=== PATIENT | female | born 1950 | race Caucasian/White ===

== ENCOUNTER 2024-01-10 17:44 | Emergency (ER) | payer MEDICARE, OTHER, SELFPAY ==
[2024-01-10 17:48] VITALS: BP 150/72
--- NOTE | 2024-01-10 18:23 | ED.GENMED ---
History of Present Illness
General
Chief Complaint: Musculo-Skeletal Complaint
Source: patient
Time Seen by Provider: 01/10/24 18:16
Travel History
Have you had any contact with someone who has COVID-19?: No
Do you have any symptoms of coronavirus? Fever > 100 degrees, chills, cough, shortness of breath, sore throat, loss of taste or smell, muscle aches, or headache?: No
History of Present Illness
History of Present Illness:
73-year-old female present emergency department for evaluation after she accidentally slipped and fell in her driveway, landing onto her left elbow with pain and swelling since falling. Patient notes pain increases with range of motion. She took
some Tylenol around 3 PM with minimal relief. Denies any previous history of injury or surgery. No other extremity related injuries. Denies any head injury, loss consciousness, use of anticoagulants or any other concerns.
Past History
Past History
ED Past Medical History: Cancer (Breast cancer)
ED Past Surgical History: Cholecystectomy, Gynecological and Orthopedic
Social History
Tobacco: Non-smoker
Alcohol: None
Drug: None
Personal:
Living: with family
Review of Systems
Review of Systems
All Other Systems: ROS reviewed and negative except as documented in HPI and ROS
Phy Exam
Physical Exam
Physical Exam:
GENERAL: Alert , in no apparent distress
EYE: conjunctiva clear
Head: Normocephalic atraumatic
NECK: Supple,
ENT: mmm.
LUNGS: no acute respiratory distress
NEUROLOGICAL: Alert and oriented
SKIN: Warm and dry, skin intact.
MUSCULOSKELETAL: Left upper extremity: Holding arm against her body with elbow flexed at 90 degrees. Patient is able to pronate and supinate but with some discomfort. She is having difficulty with flexion and extension secondary to pain. No focal
areas of tenderness but patient does note diffuse tenderness with palpation of the medial and lateral epicondyles. Easily palpable radial pulse. Cap refill less than 2 seconds. Sensation grossly intac to light touch. Patient allows for full
range of motion of her wrist, digits and shoulder without any pain.
PSYCH: Normal and appropriate interaction.
Scores
Heart Failure Risk
Heart Failure Risk Score: Not Applicable
Heart Score for Chest Pain Patients
STEMI patient?: Not applicable
Withdrawal Assessment of Alcohol
Withdrawal Assessment Completed?: Not applicable
Course
Orders/Labs/Results
Orders:
Orders
01/10/24 18:23
Ibuprofen [Motrin] 600 mg PO NOW STA
CR Elbow - Left Min 3 Views Urgent
Comment:
Reason For Exam: fall, injury, edema
Vital Signs
Initial and Last Documented VS:
Initial Vital Signs
Temp Pulse Resp BP Pulse Ox
98.5 F 75 18 150/72 100
01/10/24 17:48 01/10/24 17:48 01/10/24 17:48 01/10/24 17:48 01/10/24 17:48
Last Documented Vital Signs
Temp Pulse Resp BP Pulse Ox
98.5 F 75 18 150/72 100
01/10/24 17:48 01/10/24 17:48 01/10/24 17:48 01/10/24 17:48 01/10/24 17:48
Procedures
Splinting/Sling Placement
Left Upper Arm:
Procedure completed by: Philipp
Pre-splint extermity exam: neurovascular intact
Type of splint: posterior long arm
Splint material: other (3in orthoglass)
Splint checked by provider?: Yes
Type of sling: sling fitted
Normal distal neurovascular exam?: Yes
MDM/Problems Addressed
Differential Diagnosis Includes:
Contusion, sprain, fracture
MDM/Problems Addressed:
73-year-old female present emergency department for evaluation of left elbow injury sustained in an accidental fall on her driveway. There is some mild edema on exam. Will order x-ray to evaluate for possible fracture. Patient requesting
something for pain and is agreeable to Motrin. Reassessment by.
*Radiology
Radiology exam reviewed: preliminary read by ED provider (Distal humerus fracture)
*Critical Care Note
Total Time (30-74mins, 75-104mins- exclusive of procedures): Not Applicable
Patient Management
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
Escalation/DeEscalation of care consider admission/obs:
Patient was placed in a splint as above. She has a distal humerus fracture on x-ray. I notified Ortho on-call, Dr. Fontenot, patient can contact office tomorrow for an appointment. Placed in sling for comfort. Otherwise stable for discharge home.
ED Attending Note
-
Portions of this chart may have been created with voice recognition software.� Occasional wrong word or��sound alike� substitutions may have occurred due to the inherent limitations of voice recognition software.
Discharge Plan
Departure
Patient Disposition: Home (Routine Discharge)
Date of Disposition: 01/10/24
Time of Disposition: 19:06
Patient with high blood pressure during this ER visit?: Yes
Discharge Problem:
Fall from slipping on ice, Closed fracture of distal end of left humerus
Instructions: Elbow Fracture (DC)
Prescriptions:
No Action
multivitamin 1 EACH tablet
1 ea PO DAILY
gabapentin 300 MG capsule
300 mg PO BID
polyethylene glycol 3350 [Miralax] 119 GM powder
119 gm PO DIRECTED
Referrals:
Harjit Fontenot MD [Active] - (Ortho - Call for appointment)
Ana Melgoza MD [Family Provider] -
Interventions
Interventions:
*Risk Screen - Suicide Last Done: 01/10/24 18:20
*General Assessment Last Done: 01/10/24 18:30
*Neglect/Abuse Screening Last Done: 01/10/24 18:20
ED- Fall Risk Assessment Last Done: 01/10/24 18:20
*ED COVID-19 Vaccine History Last Done: 01/10/24 18:20
*Nursing Disposition Last Done: 01/10/24 19:54
ED-Musculoskeletal Assessment Last Done: 01/10/24 18:20
Discharge Date and Time
Discharge Date/Time: 01/10/24 19:55
[2024-01-10 18:29] VITALS: BMI 27.7
[2024-01-10] MEDS: MOTRIN 600 MG PO (18:37)
== END 2024-01-10 19:55 | disposition home or self-care (01) ==
LOC: EMR 17:44
PROVIDERS: EMERGENCY PHYSICIAN Student in an Organized Health Care Education/Training Program; FAMILY PHYSICIAN Family Medicine
DX: S42.492A Other displaced fracture of lower end of left humerus, initial encounter for closed fracture (principal); W00.0XXA Fall on same level due to ice and snow, initial encounter; R03.0 Elevated blood-pressure reading, without diagnosis of hypertension
CPT/HCPCS: 99283; 29105; 73080

== ENCOUNTER → 2024-01-13 07:22 | Outpatient (REF) | payer MEDICARE, OTHER, SELFPAY | LOC: RAD 07:22 | PROVIDERS: ATTENDING PHYSICIAN Orthopaedic Surgery Hand Surgery; FAMILY PHYSICIAN Family Medicine | DX: M25.522 Pain in left elbow (principal) | CPT/HCPCS: 73200 ==

== ENCOUNTER → 2024-01-16 06:40 | Outpatient (REF) | payer MEDICARE, OTHER, SELFPAY ==
[2024-01-16 08:59] LABS: Hematocrit 43.1 % (37.0-47.0); Hemoglobin 14.4 g/dL (12.0-16.0); Mean Corp Hgb Conc. 33.4 g/dL (33.0-37.0); Mean Corpuscular Hgb 30.4 pg (27.0-31.0); Mean Corpuscular Volume 91.1 fL (81.0-99.0); Mean Platelet Volume 9.7 fL (7.4-10.4); Platelet Count 248 10^3/uL (130-400); Red Blood Cell Count 4.73 10^6/uL (4.20-5.40); Red Cell Dist. Width 13.9 % (11.5-14.5); White Blood Cell Count 5.1 10^3/uL (4.8-10.8)
[2024-01-16 09:33] LABS: Blood Urea Nitrogen 15 mg/dl (7-17); Calcium 9.4 mg/dl (8.4-10.2); Carbon Dioxide 26 mmol/L (22-30); Chloride 105 mmol/L (98-107); Glucose 91 mg/dl (70-99); Potassium 4.8 mmol/L (3.5-5.1); Sodium 139 mmol/L (135-145); eGFR > 60.00
== END ==
LOC: SDSPAT 06:40
PROVIDERS: ATTENDING PHYSICIAN Orthopaedic Surgery Hand Surgery; FAMILY PHYSICIAN Family Medicine
DX: Z01.818 Encounter for other preprocedural examination (principal)
CPT/HCPCS: 36415; 80048; 85027; 93005

== ENCOUNTER 2024-01-18 06:16 | Day surgery (SDC) | payer MEDICARE, OTHER, SELFPAY ==
[2024-01-16 15:48] VITALS: BMI 29.0
[2024-01-18] VITALS (11 sets, daily range): BP systolic 133–159; BP diastolic 70–104; BMI 29.0
[2024-01-18] MEDS: TYLENOL 1000 MG PO (09:39)
[2024-01-18] MEDS: NORMOSOL-R 1000 IV (09:46)
== END 2024-01-18 16:35 | disposition home or self-care (01) ==
LOC: SDS 06:16
PROVIDERS: ATTENDING PHYSICIAN Orthopaedic Surgery Hand Surgery
DX: S42.402A Unspecified fracture of lower end of left humerus, initial encounter for closed fracture (principal); X58.XXXA Exposure to other specified factors, initial encounter
CPT/HCPCS: 24586; C1713; 73080; 76000

== ENCOUNTER 2024-02-16 09:15 | Outpatient (RCR) | payer MEDICARE, OTHER, SELFPAY | END 2024-02-16 23:59 | disposition home or self-care (01) | LOC: ROT 09:15 | PROVIDERS: ATTENDING PHYSICIAN Orthopaedic Surgery Hand Surgery; FAMILY PHYSICIAN Family Medicine | DX: S42.412D Displaced simple supracondylar fracture without intercondylar fracture of left humerus, subsequent encounter for fracture with routine healing (principal); Z73.6 Limitation of activities due to disability | CPT/HCPCS: 97010; 97166; 97535 ==

== ENCOUNTER 2024-03-27 14:59 | Outpatient (RCR) | payer MEDICARE, OTHER, SELFPAY | END 2024-03-27 23:59 | disposition home or self-care (01) | LOC: ROT 14:59 | PROVIDERS: ATTENDING PHYSICIAN Orthopaedic Surgery Hand Surgery; FAMILY PHYSICIAN Family Medicine | DX: Z47.89 Encounter for other orthopedic aftercare (principal); Z73.6 Limitation of activities due to disability; S42.412D Displaced simple supracondylar fracture without intercondylar fracture of left humerus, subsequent encounter for fracture with routine healing | CPT/HCPCS: 97010; 97110; 97140 ==

== ENCOUNTER 2024-04-18 09:55 | Outpatient (RCR) | payer MEDICARE, OTHER, SELFPAY | END 2024-04-18 23:59 | disposition home or self-care (01) | LOC: ROT 09:55 | PROVIDERS: ATTENDING PHYSICIAN Orthopaedic Surgery Hand Surgery; FAMILY PHYSICIAN Family Medicine | DX: Z47.89 Encounter for other orthopedic aftercare (principal); S42.412D Displaced simple supracondylar fracture without intercondylar fracture of left humerus, subsequent encounter for fracture with routine healing; Z73.6 Limitation of activities due to disability | CPT/HCPCS: 97010; 97110; 97140 ==

== ENCOUNTER → 2024-05-23 09:47 | Outpatient (REF) | payer MEDICARE, OTHER, SELFPAY | LOC: RAD 09:47 | PROVIDERS: ATTENDING PHYSICIAN Family Medicine | DX: S52.502S Unspecified fracture of the lower end of left radius, sequela (principal); Z78.0 Asymptomatic menopausal state | CPT/HCPCS: 77080 ==

== ENCOUNTER → 2024-09-19 09:52 | Outpatient (REF) | payer MEDICARE, OTHER, SELFPAY ==
[2024-09-19 10:57] LABS: % Basophils 0.9 % (0-2); % Eosinophils 0.9 % (0-6); % Immature Granulocytes 0.4 % (0-0.5); % Lymphocytes 19.1 % (20.5-51.1); % Monocytes 5.3 % (1.7-9.3); % Neutrophils 73.4 % (42.2-75.2); Absolute Basophils 0.1 10^3/uL (0-0.2); Absolute Eosinophils 0.1 10^3/uL (0-0.7); Absolute Lymphocytes 1.5 10^3/uL (1.2-3.4); Absolute Monocytes 0.4 10^3/uL (0.1-0.6); Absolute Neutrophils 5.8 10^3/uL (1.4-6.5); Hematocrit 42.1 % (37.0-47.0); Hemoglobin 14.4 g/dL (12.0-16.0); Mean Corp Hgb Conc. 34.2 g/dL (33.0-37.0); Mean Corpuscular Hgb 29.3 pg (27.0-31.0); Mean Corpuscular Volume 85.6 fL (81.0-99.0); Mean Platelet Volume 9.9 fL (7.4-10.4); Nucleated Red Blood Cells % 0 %; Platelet Count 214 10^3/uL (130-400); Red Blood Cell Count 4.92 10^6/uL (4.20-5.40); Red Cell Dist. Width 13.5 % (11.5-14.5); Urine Albumin Negative (Neg - Trace); Urine Bilirubin Negative (Negative); Urine Character Clear (Clear); Urine Color Yellow; Urine Glucose Negative (Negative); Urine Ketone Negative (Negative); Urine Leukocyte 2+ (Negative); Urine Nitrite Negative (Negative); Urine Occult Blood Negative (Negative); Urine Specific Gravity 1.005 (<1.030); Urine Urobilinogen Negative (Neg - 1+); White Blood Cell Count 7.9 10^3/uL (4.8-10.8)
[2024-09-19 11:21] LABS: Urine Amorphous Seen
[2024-09-19 11:22] LABS: Urine Bacteria Many (Negative); Urine Red Blood Cell 0-2 /HPF (0-2)
[2024-09-19 11:32] LABS: Erythrocyte Sed Rate 18 mm/hour (0-20)
[2024-09-19 11:36] LABS: Rheumatoid Agglutinin Less Than 10 IU (<10 IU)
[2024-09-19 11:38] LABS: ALT (SGPT) 31 U/L (0-35); AST (SGOT) 32 U/L (14-36); Alkaline Phosphatase 76 U/L (38-126); Blood Urea Nitrogen 16 mg/dl (7-17); Calcium 9.9 mg/dl (8.4-10.2); Carbon Dioxide 27 mmol/L (22-30); Chloride 101 mmol/L (98-107); Glucose 88 mg/dl (70-99); Potassium 4.8 mmol/L (3.5-5.1); Sodium 144 mmol/L (135-145); Total Bilirubin 0.4 mg/dl (0.2-1.3); Total Protein 7.9 g/dl (6.3-8.2); eGFR > 60.00
[2024-09-19 12:09] LABS: TSH Reflex To Free T4 1.95 uIU/ml (0.47-4.68)
[2024-09-20 14:57] LABS: Lyme Antibody Screen, EIA Negative (Negative)
[2024-09-21 02:19] LABS: ANA, IgG Reflex to HEp-2 None Detected (None Detected)
[2024-09-21 06:57] LABS: CCP Antibody IgG/IgA 23 Units (0-19)
== END ==
LOC: REG 09:52
PROVIDERS: ATTENDING PHYSICIAN Family Medicine
DX: E04.1 Nontoxic single thyroid nodule (principal); K76.0 Fatty (change of) liver, not elsewhere classified; M25.50 Pain in unspecified joint
CPT/HCPCS: 36415; 80053; 81003; 81015; 84155; 84165; 84443; 85025; 85652; 86038; 86140; 86200; 86430; 86618

== ENCOUNTER → 2024-10-10 13:03 | Outpatient (REF) | payer MEDICARE, OTHER, SELFPAY | LOC: WDC 13:03 | PROVIDERS: ATTENDING PHYSICIAN Family Medicine | DX: Z12.31 Encounter for screening mammogram for malignant neoplasm of breast (principal) | CPT/HCPCS: 77063; 77067 ==

== ENCOUNTER → 2024-10-17 07:54 | Outpatient (REF) | payer MEDICARE, OTHER, SELFPAY | LOC: RAD 07:54 | PROVIDERS: ATTENDING PHYSICIAN Obstetrics & Gynecology Gynecologic Oncology; FAMILY PHYSICIAN Family Medicine | DX: C51.9 Malignant neoplasm of vulva, unspecified (principal); C50.412 Malignant neoplasm of upper-outer quadrant of left female breast; R91.1 Solitary pulmonary nodule | CPT/HCPCS: 71260; 74177; Q9967 ==

== ENCOUNTER → 2024-11-26 12:36 | Outpatient (REF) | payer MEDICARE, OTHER, SELFPAY | LOC: PAVMRI 12:36 | PROVIDERS: ATTENDING PHYSICIAN Family Medicine | DX: D17.71 Benign lipomatous neoplasm of kidney (principal) | CPT/HCPCS: 74183; A9575 ==

== ENCOUNTER → 2025-01-18 11:31 | Outpatient (REF) | payer MEDICARE, OTHER, SELFPAY ==
[2025-01-18 12:30] LABS: Urine Albumin 2+ (Neg - Trace); Urine Bilirubin Negative (Negative); Urine Character Cloudy (Clear); Urine Color Yellow; Urine Glucose Negative (Negative); Urine Ketone Negative (Negative); Urine Leukocyte 3+ (Negative); Urine Nitrite Negative (Negative); Urine Occult Blood 4+ (Negative); Urine Urobilinogen Negative (Neg - 1+)
[2025-01-18 13:31] LABS: Urine Squamous Cell 0-2 /LPF (Few)
[2025-01-18 13:32] LABS: Urine Amorphous Seen; Urine Urothelial Cell 16-20 /LPF (FEW)
[2025-01-18 13:33] LABS: Urine White Cell >100 /HPF (0-5)
== END ==
LOC: REG 11:31
PROVIDERS: ATTENDING PHYSICIAN Obstetrics & Gynecology; FAMILY PHYSICIAN Family Medicine
DX: N39.0 Urinary tract infection, site not specified (principal)
CPT/HCPCS: 81003; 81015; 87086

== ENCOUNTER 2025-02-22 14:13 | Outpatient (RCR) | payer MEDICARE, OTHER, SELFPAY | END 2025-02-22 23:59 | disposition home or self-care (01) | LOC: RPT 14:13 | PROVIDERS: ATTENDING PHYSICIAN Obstetrics & Gynecology; FAMILY PHYSICIAN Family Medicine | DX: N32.81 Overactive bladder (principal); N39.46 Mixed incontinence; Z73.6 Limitation of activities due to disability; R35.0 Frequency of micturition; G60.9 Hereditary and idiopathic neuropathy, unspecified | CPT/HCPCS: 97110; 97161; 97530 ==

== ENCOUNTER 2025-03-26 13:54 | Outpatient (RCR) | payer MEDICARE, OTHER, SELFPAY | END 2025-03-26 23:59 | disposition home or self-care (01) | LOC: RPT 13:54 | PROVIDERS: ATTENDING PHYSICIAN Obstetrics & Gynecology; FAMILY PHYSICIAN Family Medicine | DX: N32.81 Overactive bladder (principal); N39.46 Mixed incontinence; Z73.6 Limitation of activities due to disability; R35.0 Frequency of micturition; G60.9 Hereditary and idiopathic neuropathy, unspecified | CPT/HCPCS: 97110; 97112; 97530 ==

== ENCOUNTER 2025-04-23 12:53 | Outpatient (RCR) | payer MEDICARE, OTHER, SELFPAY | END 2025-04-23 23:59 | disposition home or self-care (01) | LOC: RPT 12:53 | PROVIDERS: ATTENDING PHYSICIAN Obstetrics & Gynecology; FAMILY PHYSICIAN Family Medicine | DX: N32.81 Overactive bladder (principal); N39.46 Mixed incontinence; Z73.6 Limitation of activities due to disability; R35.0 Frequency of micturition; G60.9 Hereditary and idiopathic neuropathy, unspecified | CPT/HCPCS: 97110; 97112; 97140 ==

== ENCOUNTER 2025-05-24 13:51 | Outpatient (RCR) | payer MEDICARE, OTHER, SELFPAY | END 2025-05-24 23:59 | disposition home or self-care (01) | LOC: RPT 13:51 | PROVIDERS: ATTENDING PHYSICIAN Obstetrics & Gynecology; FAMILY PHYSICIAN Family Medicine | DX: N32.81 Overactive bladder (principal); N39.46 Mixed incontinence; Z73.6 Limitation of activities due to disability; R35.0 Frequency of micturition; G60.9 Hereditary and idiopathic neuropathy, unspecified | CPT/HCPCS: 97110; 97112; 97140; 97530 ==

== ENCOUNTER → 2025-06-20 10:45 | Outpatient (REF) | payer MEDICARE, OTHER, SELFPAY | LOC: CLAB 10:45 | PROVIDERS: ATTENDING PHYSICIAN Obstetrics & Gynecology | DX: N39.41 Urge incontinence (principal) | CPT/HCPCS: 88304 ==

== ENCOUNTER → 2025-10-17 11:03 | Outpatient (REF) | payer MEDICARE, OTHER, SELFPAY | LOC: WDC 11:03 | PROVIDERS: ATTENDING PHYSICIAN Family Medicine | DX: Z12.31 Encounter for screening mammogram for malignant neoplasm of breast (principal) | CPT/HCPCS: 77063; 77067 ==

== ENCOUNTER → 2025-11-18 10:59 | Outpatient (REF) | payer MEDICARE, OTHER, SELFPAY ==
[2025-11-18 13:17] LABS: Hematocrit 42.6 % (37.0-47.0); Hemoglobin 14.3 g/dL (12.0-16.0); Mean Corp Hgb Conc. 33.6 g/dL (33.0-37.0); Mean Corpuscular Volume 87.8 fL (81.0-99.0); Nucleated Red Blood Cells % 0 %; Platelet Count 216 10^3/uL (130-400); Red Cell Dist. Width 13.8 % (11.5-14.5)
[2025-11-18 14:03] LABS: Glycohemoglobin (HgbA1c) 5.5 % (4.0-5.9)
[2025-11-18 14:15] LABS: ALT (SGPT) 29 U/L (0-35); AST (SGOT) 28 U/L (14-36); Albumin 4.8 g/dl (3.5-5.0); Alkaline Phosphatase 77 U/L (38-126); Blood Urea Nitrogen 17 mg/dl (7-17); Calcium 9.8 mg/dl (8.4-10.2); Carbon Dioxide 29 mmol/L (22-30); Chloride 103 mmol/L (98-107); Glucose 83 mg/dl (70-99); HDL Cholesterol 67 mg/dl; LDL Cholesterol, Calculated 90 mg/dl; Potassium 5.1 mmol/L (3.5-5.1); Sodium 139 mmol/L (135-145); Total Protein 7.9 g/dl (6.3-8.2); Very Low Density Lipoprotein 44 mg/dl (0-30); eGFR > 60.00
== END ==
LOC: REG 10:59
PROVIDERS: ATTENDING PHYSICIAN Family Medicine
DX: K76.0 Fatty (change of) liver, not elsewhere classified (principal); E78.1 Pure hyperglyceridemia; D17.71 Benign lipomatous neoplasm of kidney; Z68.30 Body mass index [BMI] 30.0-30.9, adult; E04.1 Nontoxic single thyroid nodule
CPT/HCPCS: 36415; 80053; 80061; 83036; 85025